=== PATIENT | female | born 1980 | race Caucasian/White ===

== ENCOUNTER 2017-12-07 12:38 | Outpatient (CLI) | payer OTHER ==
[2017-12-07] MEDS ORDERED: IOHEXOL 50 ML IV ONE (13:21)
== END 2017-12-07 17:42 | disposition home or self-care (01) ==
LOC: SRD 12:38
PROVIDERS: ATTEND Specialist
DX: Z31.41 Encounter for fertility testing (principal)
CPT/HCPCS: 74740; C1751; Q9967